=== PATIENT | female | born 1985 | race Caucasian/White ===

== ENCOUNTER 2020-03-13 14:48 | Emergency (ER) | payer BC, OTHER ==
[2020-03-13] MEDS ORDERED: SODIUM CHLORIDE 1,000 ML IV STA (14:59)
[2020-03-13] MEDS ORDERED: ACETAMINOPHEN 1000 MG/100 ML VIAL (NON FORMULARY) IVPB ONE (14:59)
--- NOTE | 2020-03-13 14:59 | PDOC ---
Rapid Medical Evaluation Time Seen by Provider: 03/13/20 14:53 Medical Evaluation: Allergies Allergy/AdvReac Type Severity Reaction Status Date / Time No Known Allergies Allergy Verified 09/11/14 11:09 03/13/20 14:57 I have performed a brief in-person evaluation of this patient. CC: intermittent ride sided abdominal pain x3 weeks. Had GI eval which was unremarkable. denies n/v/d. PE: Abd SNTND. Orders: labs, urine, NS Patient will proceed to ED for further evaluation. Discharge Disposition - Diagnosis Abdominal pain - Referrals - Patient Instructions - Post Discharge Activity
[2020-03-13 15:01] VITALS: BP 142/81; PULSE 87; TEMP 96.5; BMI 26.9
[2020-03-13] MEDS ORDERED: ACETAMINOPHEN INJECTION 100 ML IVPB ONE (15:38)
[2020-03-13 16:04] LABS: BASO % 0.7 % (0-2.0); EOS % 1.1 % (0-4.5); HEMATOCRIT 33.9 % (32.4-45.2); HEMOGLOBIN 10.8 GM/dL (10.7-15.3); LYMPH % 29.2 % (8-40); MCH 23.3 pg (25.7-33.7); MCHC 31.8 g/dl (32.0-36.0); MEAN CELL VOLUME 73.3 fl (80-96); MEAN PLT VOLUME 8.6 fl (7.5-11.1); MONO % 8.9 % (3.8-10.2); NEUT % 60.1 % (42.8-82.8); PLATELET COUNT 274 K/MM3 (134-434); RBC 4.63 M/mm3 (3.60-5.2); RDW 15.8 % (11.6-15.6); WHITE BLOOD COUNT 6.9 K/mm3 (4.0-10.0)
[2020-03-13 16:28] LABS: ALBUMIN 3.6 g/dl (3.4-5.0); BILIRUBIN,TOTAL 0.2 mg/dL (0.2-1); BLOOD UREA NITROGEN 7.8 mg/dL (7-18); CALCIUM 9.1 mg/dL (8.5-10.1); CREATININE 0.7 mg/dL (0.55-1.3); TOT PROT 7.3 g/dl (6.4-8.2)
--- NOTE | 2020-03-13 17:20 | PDOC ---
History of Present Illness - General Chief Complaint: Pain Stated Complaint: ABD PAIN Time Seen by Provider: 03/13/20 14:53 History Source: Patient Exam Limitations: No Limitations - History of Present Illness Travel History: No Initial Comments: 03/13/20 17:06 35-year-old female with complaints of right lower quadrant pain worsened with movement especially ambulation for the past few Weeks intermittentlyvaginal bleeding, back pain, radiation of pain. weeks intermittently. Patient describes the pressure as a sharp cramp-like sensation without vaginal discharge. patient denies history of ovarian cysts,, fibroids, or other [employer] disorders. Patient denies irregular menses Timing/Duration: reports: intermittent Quality: reports: mild, cramping Abdominal Pain Onset Location: reports: suprapubic Pain Radiation: reports: RLQ Activities at Onset: reports: none Aggravating Factors: improves with: Movement Alleviating Factors: improves with: Rest Past History - Travel History Traveled outside of the country in the last 30 days: No Close contact w/someone who was outside of country & ill: No - Medical History Allergies/Adverse Reactions: Allergies Allergy/AdvReac Type Severity Reaction Status Date / Time No Known Allergies Allergy Verified 03/13/20 15:01 Home Medications: Ambulatory Orders Metoclopramide HCl [Reglan] 10 mg PO BID #10 tablet 09/11/14 CVA: No COPD: No - Reproductive History Is Patient Now?: No (#): 4 Para: 3 - Psycho-Social/Smoking History Patient Lives Alone: No Lives with/in: spouse/SO Smoking History: Never smoked Have you smoked in the past 12 months: No Information on smoking cessation initiated: No - Substance Abuse Hx (Audit-C & DAST Scrn) How often the patient has a drink containing alcohol: Never Score: In Men: 4 or > Positive; In Women: 3 or > Positive: 0 Screen Result (Pos requires Nsg. Audit-10AR): Negative In the last yr the pt used illegal drug/Rx for NonMed reason: No Score: Yes response is considered Positive: 0 Screen Result (Positive result requires Nsg. DAST-10): Negative Abd/GI Specific PMHX - Complaint Specific PMHX Colitis: No Diverticulitis: No Gall Bladder Disease: No GERD: No Review of Systems - Review of Systems Able to Perform ROS?: Yes Constitutional: No: Symptoms Reported HEENTM: No: Symptoms Reported Respiratory: No: Symptoms reported Cardiac (ROS): No: Symptoms Reported ABD/GI: Yes: Abdominal cramping. No: Nausea, Poor Appetite, Poor Fluid Intake, Vomiting : No: Symptoms Reported Integumentary: No: Symptoms Reported Neurological: No: Symptoms reported Endocrine: No: Symptoms Reported Hematologic/Lymphatic: No: Symptoms Reported *Physical Exam - Vital Signs Last Vital Signs Temp Pulse Resp BP Pulse Ox 96.5 F L 87 17 142/81 100 03/13/20 14:58 03/13/20 14:58 03/13/20 14:58 03/13/20 14:58 03/13/20 14:58 - Physical Exam General Appearance: Yes: Nourished, Appropriately Dressed. No: Apparent Distress HEENT: negative: Pale Conjunctivae Neck: positive: Supple Respiratory/Chest: positive: Lungs Clear, Normal Breath Sounds. negative: Respiratory Distress, Accessory Muscle Use Cardiovascular: positive: Regular Rhythm, Regular Rate. negative: Murmur Gastrointestinal/Abdominal: positive: Normal Bowel Sounds, Soft, Tenderness (Right suprapubic right lower quadrant). negative: Distended, Guarding, Rebound, Mass Musculoskeletal: negative: CVA Tenderness Integumentary: positive: Normal Color, Warm, Moist Neurologic: positive: Motor Strength 5/5 (Ambulatory) ED Treatment Course - LABORATORY CBC & Chemistry Diagram: 03/13/20 15:45 03/13/20 15:45 - ADDITIONAL ORDERS Additional order review: Laboratory Results 03/13/20 03/13/20 15:45 15:45 Sodium 138 Potassium 4.0 Chloride 107 Carbon Dioxide 28 Anion Gap 4 L BUN 7.8 Creatinine 0.7 Est GFR (CKD-EPI)AfAm 128.28 Est GFR (CKD-EPI)NonAf 110.69 Random Glucose 86 Calcium 9.1 Total Bilirubin 0.2 AST 10 L ALT 16 Alkaline Phosphatase 55 Total Protein 7.3 Albumin 3.6 Lipase 146 Serum , Qual Negative 03/13/20 15:45 RBC 4.63 MCV 73.3 L MCHC 31.8 L RDW 15.8 H D MPV 8.6 Neutrophils % 60.1 D Lymphocytes % 29.2 D Monocytes % 8.9 D Eosinophils % 1.1 D Basophils % 0.7 D - Medications Given in the ED: ED Medications Discontinued Medications Generic Name Dose Route Start Last Admin Trade Name Neisha PRN Reason Stop Dose Admin Acetaminophen 1,000 mg 03/13/20 14:59 03/13/20 15:51 Ofirmev Injection - IVPB 03/13/20 15:00 1,000 mg ONCE ONE Administration Sodium Chloride 1,000 mls @ 1,000 mls/hr 03/13/20 14:59 03/13/20 15:51 Normal Saline - IV 03/13/20 15:58 1,000 mls/hr ASDIR STA Administration Medical Decision Making - Medical Decision Making 03/13/20 17:10 Chief complaint: Intermittent right lower quadrant pain worsened with movement especially ambulation. Exam: Patient with right suprapubic tenderness without CVA tenderness or other acute findings. Plan: Labs, urine and ultrasound ordered. Patient offered Tylenol but states pain is minimal presently 03/13/20 18:12 Laboratory Tests 03/13/20 03/13/20 03/13/20 15:45 15:45 15:45 WBC 6.9 Hgb 10.8 Hct 33.9 D MCV 73.3 L RDW 15.8 H D Neutrophils % 60.1 D Sodium 138 Potassium 4.0 Chloride 107 Carbon Dioxide 28 Anion Gap 4 L BUN 7.8 Creatinine 0.7 Est GFR (CKD-EPI)AfAm 128.28 Est GFR (CKD-EPI)NonAf 110.69 Random Glucose 86 Calcium 9.1 Total Bilirubin 0.2 AST 10 L ALT 16 Alkaline Phosphatase 55 Total Protein 7.3 Albumin 3.6 Lipase 146 Serum , Qual Negative Urine Protein Urine Glucose (UA) Urine Blood Urine Nitrite Urine Bilirubin Ur Leukocyte Esterase 03/13/20 16:40 WBC Hgb Hct MCV RDW Neutrophils % Sodium Potassium Chloride Carbon Dioxide Anion Gap BUN Creatinine Est GFR (CKD-EPI)AfAm Est GFR (CKD-EPI)NonAf Random Glucose Calcium Total Bilirubin AST ALT Alkaline Phosphatase Total Protein Albumin Lipase Serum , Qual Urine Protein Negative Urine Glucose (UA) Negative Urine Blood Negative Urine Nitrite Negative Urine Bilirubin Negative Ur Leukocyte Esterase Negative 03/13/20 18:37 Ultrasound shows a 2.1 cm right ovarian follicle cyst without intraluminal debris/hemorrhage. Small amount of pelvic free fluid. Mild endometrial thickening seen which may be physiologic in nature correlate with menstrual cycle phase. Otherwise no evidence of ovarian torsion bilaterally. Discharge - Discharge Information Problems reviewed: Yes Clinical Impression/Diagnosis: Abdominal pain, Ovarian cyst Condition: Good Disposition: HOME - Follow up/Referral Referrals: Roman Riggs MD [Primary Care Provider] - - Patient Discharge Instructions Patient Printed Discharge Instructions: DI for Ovarian Cyst Additional Instructions: Please follow-up with your SKIP TRACER in regards to your symptoms. In The meanwhile to take Tylenol Motrin for discomfort, apply heating pad to the affected area, and avoid movements that trigger discomfort. - Post Discharge Activity
[2020-03-13 17:28] LABS: URINE APPEARANCE CLEAR; URINE BILIRUBIN NEGATIVE (NEGATIVE); URINE COLOR YELLOW; URINE GLUCOSE (UA) NEGATIVE (NEGATIVE); URINE KETONE NEGATIVE (NEGATIVE); URINE LEUK ESTERASE NEGATIVE (NEGATIVE); URINE NITRITE NEGATIVE (NEGATIVE); URINE PROTEIN NEGATIVE (NEGATIVE); URINE UROBILINOGEN 0.2 mg/dL (0.2-1.0)
== END 2020-03-13 19:01 | disposition home or self-care (01) ==
LOC: JER 14:48
PROC: 3E0333Z Introduction of Anti-inflammatory into Peripheral Vein, Percutaneous Approach (ICD-10-PCS; principal; 2020-03-13)
PROC: 3E0337Z Introduction of Electrolytic and Water Balance Substance into Peripheral Vein, Percutaneous Approach (ICD-10-PCS; 2020-03-13)
DX: R10.9 Unspecified abdominal pain (principal)
CPT/HCPCS: 36415; 76830-TC; 80053; 81003; 83690; 84703; 85025; 87086; 99284-25; J0131